=== PATIENT | male | born 1985 | race Caucasian/White ===

== ENCOUNTER 2017-10-08 07:29 | Emergency (ER) | payer BC ==
[~2017-10-08] VITALS: Ht 190.5 cm; Wt 79.4 kg
[~2017-10-08 07:29] MED LIST: AUGMENTIN 875-1 EACH PO; NORCO 5-325 TA1 EACH PO
[2017-10-08 10:04] VITALS: BP 136/89
== END 2017-10-08 09:45 | disposition home or self-care (01) ==
LOC: ER 07:29
DX: S01.511A Laceration without foreign body of lip, initial encounter (principal); K08.89 Other specified disorders of teeth and supporting structures; W22.8XXA Striking against or struck by other objects, initial encounter; Y93.44 Activity, trampolining; Y92.89 Other specified places as the place of occurrence of the external cause; Y99.8 Other external cause status

== ENCOUNTER 2020-02-06 04:02 | Emergency (ER) | payer BC, OTHER ==
[~2020-02-06] VITALS: Ht 188 cm; Wt 81.7 kg
[2020-02-06] MEDS ORDERED: PERCOCET 5-3251 EACH PO (04:48)
[2020-02-06] MEDS ORDERED: NAPROSYN500 MG PO (04:48)
[2020-02-06] MEDS ORDERED: ERYTHROMYCIN E3.5 G3 OPHTHALMIC (05:00)
[2020-02-06 05:08] VITALS: BP 112/67
== END 2020-02-06 05:09 | disposition home or self-care (01) ==
LOC: ER 04:02
DX: H16.8 Other keratitis (principal)